=== PATIENT | male | born 1980 ===

== ENCOUNTER 2020-10-17 18:59 | Observation (INO) ==
[2020-10-17] MEDS ORDERED: NALOXONE HCL 0.4 MG/ML VIAL IV PRN (19:27)
[2020-10-17] MEDS ORDERED: ONDANSETRON 4 MG/2 ML VIAL IV PRN (19:28)
[2020-10-17] MEDS ORDERED: HYDROmorphone 1 MG/ML SYRINGE IV PRN (19:48)
[2020-10-17] MEDS: DEXTROSE 5%-1/2NS 1,000 ML IV SCH (20:55)
[2020-10-17] MEDS: 0.9 % SODIUM CHLORIDE 10 ML SYRINGE IV SCH (20:55)
[2020-10-18] MEDS: DEXTROSE 5%-1/2NS 1,000 ML IV SCH ×2 (04:40→13:37)
[2020-10-18] MEDS: 0.9 % SODIUM CHLORIDE 10 ML SYRINGE IV SCH (04:41)
--- NOTE | 2020-10-18 07:26 | General Surg History&Physical ---
HPI History of Present Illness Patient information: Note initiated : 10/18/20 at 7:24 am Service Date, if different from initiated Date: [] Patient: Morales Mcintyre a 40 y/o M admitted on 10/17/20 for Perirectal Abscess. Chief Complaint: [] Chief complaint: rectal pain History of present illness: Mr. Mcintyre is a 40 year old M who presented with 3 weeks of progressive rectal fullness, see my clinic note dated 10/17 for more d etails. Constitutional Constitutional: Present as per HPI PFSH PFSH All Active Problems Lesion of rectum (Acute) Tenesmus (rectal) (Acute) Urinary urgency (Acute) Cerumen impaction (Chronic) Wrist tendonitis (Chronic) Sinusitis (Chronic) Bronchitis (Chronic ~2013) Medical History Bronchitis (~2013) Cerumen impaction Sinusitis Wrist tendonitis Surgical History H/O vasectomy (~08/15/15) Family History Other No pertinent family history Social History marital status: smoking status: Former smoker substance use type: does not use MEDS/ALLERGIES Home Medications and Allergies Home Medications Medication Instructions Recorded Confirmed Type ibuprofen 600 mg PO TID 10/17/20 10/17/20 History Allergies Allergy/AdvReac Type Severity Reaction Status Date / Time moxifloxacin [From Avelox] Allergy Mild Hives Verified 10/18/20 06:41 Physical Examination Vital Signs Vital signs: Temp Pulse Resp BP Pulse Ox 97.8 F 67 14 111/68 97 10/18/20 04:41 10/18/20 06:55 10/18/20 06:55 10/18/20 04:41 10/18/20 06:55 General physical appearance General physical exam: well developed, well nourished and no distress Eyes Eye exam: PERRL and normal ocular movement ENT ENT exam: normal pinna, normal nares, normal mucosa, no hearing loss and no congestion Head Head exam IM: Present atraumatic and normocephalic Neck Neck exam: no masses, no bruits, trachea midline, no lymphadenopathy and no venous distension Cardiovascular Cardiovascular exam IM: Present normal rate and rhythm Respiratory Respiratory exam: normal expansion, normal respiratory effort, clear to percussion and clear to auscultation Abdomen Abdomen: Present soft, non tender and bowel sounds Hernia: Present none Genitourinary Genitourinary (Male): Present normal penis with no external lesions Rectum Rectum: Present normal sphincter tone, no hemorrhoids, no tenderness, no masses and no bleeding Integumentary Integumentary: Present no rash, no growths and no abnormal pigmentation Neurologic Neurologic: Present normal coordination and normal sensation Musculoskeletal Musculoskeletal: Present normal gait and normal posture Psychiatric Psychiatric: Present oriented to time, oriented to person, oriented to place, speech is normal and memory intact Results Labs Labs: All other labs normal. Imaging CT scan - abdomen: report reviewed and other (annette-rectal abscess) A/P Narrative A/P Narrative: annette-rectal abscess Plan: admit, EUA, drainage Time Spent With Patient Time: Total time spent is greater than 50% in coordination of care (as documented) at patient's floor/unit and/or counseling patient:
[2020-10-18] MEDS ORDERED: IPRATROPIUM/ALBUTEROL 3 ML AMPUL.NEB NEB PRN ×2 (07:30→07:57)
[2020-10-18] MEDS ORDERED: SCOPOLAMINE 1 PATCH PATCH TOPICAL PRN (07:30)
[2020-10-18] MEDS ORDERED: MIDAZOLAM 2 MG/2 ML VIAL ONE (07:34)
[2020-10-18] MEDS ORDERED: GLYCOPYRROLATE 0.2 MG/ML VIAL IV ONE (07:34)
[2020-10-18] MEDS ORDERED: DEXAMETHASONE 10 MG/ML VIAL ONE (07:34)
[2020-10-18] MEDS ORDERED: KETAMINE 100 MG/ML ML ONE (07:34)
[2020-10-18] MEDS ORDERED: LIDOCAINE HCL/PF 100 MG/5 ML SYRINGE IV ONE (07:34)
[2020-10-18] MEDS ORDERED: fentaNYL 100 MCG/2 ML VIAL IV ONE (07:34)
[2020-10-18] MEDS ORDERED: ONDANSETRON 4 MG/2 ML VIAL ONE (07:34)
[2020-10-18] MEDS ORDERED: PROPOFOL 200 MG/20 ML VIAL IV ONE (07:34)
[2020-10-18] MEDS ORDERED: LORazepam 2 MG/ML VIAL IV PRN (07:57)
[2020-10-18] MEDS ORDERED: fentaNYL 100 MCG/2 ML VIAL IV PRN (07:57)
[2020-10-18] MEDS ORDERED: BENZOCAINE/MENTHOL 1 LOZENGE PO PRN (07:57)
[2020-10-18] MEDS ORDERED: METHOCARBAMOL 1,000 MG/10 ML VIAL IV PRN (07:57)
[2020-10-18] MEDS ORDERED: ACETAMINOPHEN 1,000 MG/100 ML BAG IV ONE (07:57)
[2020-10-18] MEDS ORDERED: ONDANSETRON 4 MG/2 ML VIAL IV PRN (07:57)
[2020-10-18] MEDS ORDERED: MEPERIDINE 25 MG/ML SYRINGE IV PRN (07:57)
[2020-10-18] MEDS ORDERED: LACTATED RINGERS 1,000 ML IV SCH (08:00)
[2020-10-18] MEDS ORDERED: LIDOCAINE W/EPI 1% 20 ML VIAL IJ ONE (08:03)
[2020-10-18] MEDS ORDERED: BUPIVACAINE 0.5% 50 ML VIAL IJ ONE (08:05)
--- NOTE | 2020-10-18 08:25 | Operative Note ---
Brief Operative Note Date of procedure: 10/18/20 Pre-op diagnosis: Perirectal abscess Post-op diagnosis: other (Perirectal phlegmonous change, minimal pus) Procedure: Exam under anesthesia, expression of perirectal pus, biopsy of rectal polyp Grafts/Implants: No Anesthesia: GLMA Findings: Perirectal phlegmonous changes Complications: none Surgeon: John Garcia Estimated blood loss (cc): 25 Specimens Removed/Pathology: none sent Condition: stable Disposition: PACU Operative Note Operative Note: After risk benefits and alternatives to the procedure were discussed with the patient at length he verbalized understanding and desire to continue with procedure. Patient was taken main operating room placed upon the operative table. General anesthesia was induced over LMA. Patient is prepped and draped in the standard sterile surgical fashion after being placed in a modified lithotomy position. A surgical timeout was taken to verify patient and procedure being performed. 1% lidocaine half percent Marcaine was used to perform a perianal field block, digital rectal exam showed some fullness on the right side of the rectum a full exam under anesthesia was performed which showed a posterior inflammatory rectal polyp this was biopsied and passed off the field for surgical pathology. Attention was turned to the fullness on the right side the abdomen, an 18-gauge seeker needle was used to identify pus pocket, this was unsuccessful however massaging of the area of fluctuance revealed a small amount of pus drainage. Multiple attempts to find a pus pocket was unsuccessful however the fullness was decreased after massaging. Proctofoam plug was placed, ABD and mesh underwear were used for dressing. Patient was then awakened from anesthesia transferred postanesthesia care unit awake alert in good condition.
--- NOTE | 2020-10-18 08:34 | Discharge Plan ---
Discharge Plan Patient/Caregiver Discharge Instructions Activity: increase activity as tolerated Diet: Regular Diet Prescriptions: New acetaminophen [Tylenol 8 Hour] 650 mg tablet extended release 650 mg PO Q8H PRN (Reason: pain) Qty: 30 RF: 0 oxycodone 5 mg tablet 5 mg PO Q6H PRN (Reason: pain) Qty: 7 RF: 0 metronidazole [Flagyl] 500 mg tablet 500 mg PO TID 7 Days Qty: 21 RF: 0 levofloxacin 750 mg tablet 750 mg PO QDAY 7 Days Qty: 7 RF: 0 Continued ibuprofen 600 mg Tablet 600 mg PO TID RF: 0 Follow Up Plan Follow up with: John Garcia MD [Physician] - (Follow-up with me in 1 week) Patient Disposition: Home, Self-Care Plan of Treatment: Will discharge home with p.o. antibiotics, follow-up in 1 week and will repeat outpatient CT to document resolution of phlegmon. Prognosis: Good Overall status at discharge: patient is progressing back to baseline Discharge Orders: Discharge Order (Routine); Ordered 10/18/20 Ordered By: John Garcia
--- NOTE | 2020-10-19 18:13 | Surgical Pathology Report ---
Histology Microscopic Diagnosis Specimen A- COLON, RECTUM, POLYPECTOMY: --- INFLAMMATORY POLYP. Clinical History Perirectal abscess. Procedural Impression Polyp. Gross Description Received in formalin labeled rectal polyp, are two fragments of red bardales polypoid tissue ranging in size from 0.7 to 1.3 cm. Totally submitted in one cassette. ([facility]:adj) Electronically Signed Corry Pike MD, FCAP Electronically Signed 10/19/2020 18:12
== END 2020-10-18 13:15 | disposition home or self-care (01) ==
LOC: MEDSUR
PROVIDERS: ADMIT Surgery; ATTEND Surgery